=== PATIENT | male | born 1935 | race Caucasian/White ===

== ENCOUNTER → 2017-06-14 | Outpatient (CLI) | payer MEDICARE ==
[~2017-06-14] MED LIST: FINA5 PO; HYDHCL10 PO; LORA1 PO; SITA100T2 PO; SULTRISS PO; TAMS.4ER PO; TERA5 PO; TESTTP TOP
== END ==
LOC: PLD 13:20 → LAB SHORT 13:20
DX: L72.11 Pilar cyst (principal)
CPT/HCPCS: 88304